=== PATIENT | female | born 1965 | race Caucasian/White ===

== ENCOUNTER 2022-06-09 17:26 | Emergency (ER) | payer OTHER, SELFPAY ==
[2022-06-09 17:30] VITALS: BP 129/87; PULSE 65; RESP 16; TEMP 36.1; O2SAT 100; BMI 25.8
--- NOTE | 2022-06-09 17:36 | ED_ITS ---
HPI - Extremity Injury (Upper) General Time Seen by Provider: 17:37 Date Seen: 06/09/22 Chief Complaint: Extremity Pain/Injury, Upper Stated Complaint: Broken Finger Time Seen by Provider: 06/09/22 17:29 Source: patient and RN notes reviewed Mode of arrival: ambulatory Limitations: no limitations Related Data Previous Rx's Medication Instructions Recorded cephalexin 500 mg tablet 500 mg PO TID #15 tabs 06/09/22 Allergies Allergy/AdvReac Type Severity Reaction Status Date / Time No Known Drug Allergies Allergy Verified 06/09/22 17:35 PFSH PFSH Social History Smoking Status: Never smoker Do you use any of these nicotine containing products: None Second hand tobacco smoke exposure: No How often do you have a drink containing alcohol: never How often do you have six or more drinks on one occasion: Never AUDIT-C Alcohol total score: 0 Non-prescribed substance use: denies use service: No Exam Const: Vital Signs, click to edit/add: Vital Signs - 24 hr 06/09/22 17:30 06/09/22 18:33 Temperature 96.9 F L Pulse Rate [Left P ulse Oximeter] 65 63 Respiratory Rate 16 18 Blood Pressure [Le ft Upper Arm] 129/87 117/104 H Pulse Oximetry 100 100 Oxygen Delivery Me thod Room Air Room Air Documenting provider has reviewed patient's vital signs: yes Common normals: no apparent distress, average body habitus, oriented x3, no limitations, healthy appearing and alert General appearance: cooperative, well kempt, well developed and anxious Other: Patient came in quite anxious. Can smell alcohol but she is still alert, conversive appropriate. GCS is 15/15. She has obvious right 4th finger deformity with the distal fingers overlapping the 3rd finger. Appears to be a opening in the skin or bleeding from the skin may be from the medial proximal 4th finger in the interdigital web space area. Has some dried blood on her forehead which likely came from her hand, no open wounds noted. Patient was ambulatory into the ED on her own accord, hanging onto her left hand with a towel. Was quite verbal initially when she was coming in. HENMT: Common normals: normocephalic, head/scalp atraumatic (Has a little bit of tenderness over the angle of the left zygomatic arch ), hearing grossly normal bilaterally, external ears normal, TM's normal bilaterally, external nose normal, nasal mucous membranes and turbinates normal, moist oral mucous me mbranes, oropharynx normal, dentition normal and gingiva normal Head and scalp: normocephalic and atraumatic (Has a little bit of tenderness over the angle of the left zygomatic arch ) Nose: external nose normal and nasal mucous membranes and turbinates normal External ear: external ears normal Tympanic membrane: TM's normal bilaterally Other: The left zygomatic arch maybe has just a mild amount of swelling but no ecchymosis, no abrasion noted at this point. Eye: Common normals: PERRL, EOMs intact bilaterally, conjunctivae normal and no scleral icterus Conjunctiva: conjunctiva(e) normal Pupil: PERRL Neck & C-Spine: Common normals: full ROM (No tenderness), no lymphadenopathy, supple, no meningeal signs, no JVD and thyroid normal Thyroid: thyroid normal Resp: Common normals: normal respiratory effort, no retractions, no use of accessory muscles and clear to auscultation bilaterally Auscultation: clear to auscultation bilaterally Cardio: Common normals: no JVD, regular rate, regular rhythm, S1 normal heart sound, S2 normal heart sound, no gallops, no clicks and no murmurs Rate: regular rate Rhythm: regular rhythm Heart sounds: S1 normal and S2 normal GI: Common normals: Normal to inspection, nondistended, normoactive bowel sounds present, soft to palpation, non-tender, no hepatosplenomegaly and no masses Palpation: soft and no hepatosplenomegaly Extremity: Other: Left hand with finger is noted above. Otherwise she complains of no other pain in her joints or extremities in the remainder of her left arm, her right arm and both of her legs are completely normal. Neuro: [place] Coma Scale: document GCS findings Yvon coma scale eye opening: Spontaneous (4) [place] coma scale verbal response: Orientated (5) [place] coma scale motor response: Obey commands (6) Yvon coma scale total score: 15 Common normals: oriented x3 Sensorium/orientation: alert Meningeal signs: no meningeal signs Psych: Appearance: well kempt Course Course Hospital Course: Did provide a digital block after examining her. I mirella up 0.25% bupivacaine, 6 mL was injected in a digital block at the base of this left 4th finger. We will be subsequently getting x-rays. Consultations Consultation #1: Have spoken with Uriel on-call for Orthopedics. I will attempt to reduce the angulation of this finger and place a splint on. Uriel understands that there is underlying laceration which I have not been able to completely evaluate yet. Staff is currently working on cleaning her hand up. Time: 18:25 Vital Signs Vital signs: Initial Vital Signs Temperature 96.9 F L 06/09/22 17:30 Temperature Source Temporal Artery Scan 06/09/22 17:30 Pulse Rate 65 06/09/22 17:30 Pulse Rhythm 06/09/22 17:30 Pulse Strength 3+ Normal 06/09/22 17:30 Respiratory Rate 16 06/09/22 17:30 Blood Pressure 129/87 06/09/22 17:30 Blood Pressure Mean 101 06/09/22 17:30 Blood Pressure Position Sitting 06/09/22 17:30 Pulse Oximetry 100 06/09/22 17:30 Oxygen Delivery Method 06/09/22 17:30 Vital Signs Temperature 96.9 F L 06/09/22 17:30 Pulse Rate 65 06/09/22 17:30 Respiratory Rate 16 06/09/22 17:30 Blood Pressure 129/87 06/09/22 17:30 Pulse Oximetry 100 06/09/22 17:30 Oxygen Delivery Method 06/09/22 17:30 Temperature 96.9 F L 06/09/22 17:30 Pulse Rate 63 06/09/22 18:33 Respiratory Rate 18 06/09/22 18:33 Blood Pressure 117/104 H 06/09/22 18:33 Pulse Oximetry 100 06/09/22 18:33 Oxygen Delivery Method 06/09/22 18:33 MDM - Extremity Injury (Upper) Imaging Data Left hand x-ray: Attestation: I have reviewed the pertinent imaging results. My impression: I see a proximal phalanx fracture of her left 4th finger. Await Radiology over- read. Radiologist's impression: Patient: CARLITA CRUM Facility:?[facility] Patient ID:?[id number] Site Patient ID:?[id number]. Site :?[id number] Study:?XRay Extremity Left HAND 3 VIEW-06/09/2022 6:09:54 PM Ordering Physician:?Antoniaon Blanca Final Report: INDICATION: Hand injury. TECHNIQUE: Three views of the left hand. FINDINGS: Acute fracture through the proximal metaphysis of the 4th proximal phalanx. Fracture appears extra-articular. Adjacent soft tissue swelling. Dictated by Gordy Batista MD @ 06/09/2022 6:30:31 PM (Electronic Signature) Critical Care Time Critical Care Time Critical Care Time: No Discharge Plan Discharge Clinical Impression: Laceration of multiple sites of hand and fingers, Finger fracture, left Patient Disposition: Home, Self-Care Condition: Stable Instructions: Laceration (ED), Finger Fracture (ED) Additional Instructions: Call the Orthopedic Clinic tomorrow morning, phone number is [phone]. They will get you scheduled for re-evaluation, will need to take down the splint to visualize the laceration areas to ensure that they are appropriately healing. Elevate this hand, apply ice to help minimize pain and swelling. Can use Tylenol and ibuprofen per bottle directions as needed for discomfort. Need to leave the splint on your hand and keep it clean and dry. Take oral antibiotic as prescribed, next dose due tomorrow morning. Prescriptions: New cephalexin 500 mg tablet 500 mg PO TID Qty: 15 0RF Stand Alone Forms: MyHealth Info Instructions Procedures Laceration Laceration 1: Pre procedure diagnosis: 1.5 cm laceration along base of left 4th finger Post procedure diagnosis: Same Site marking: not applicable Name of person performing procedure: Blanca Augustin Site: hand Side (If applicable): left Size (cm): 1.5 (Laceration was difficult to access due to patient. This was the finger that was fractured in any movement was painful for her. Difficult to see how deep this extended.) Description: irregular Depth: simple, single layer Local Anesthetic: bupivacaine 0.25% Amount of anesthesia used (mL): 2 Pre-repair: wound explored and irrigated extensively Skin layer closed with: other (Ethilon) Size (cm): 3-0 Number of sutures: 4 Technique: simple, interrupted Wound cleansing: soap Estimated blood loss (if any): less than 5mls Laceration 2: Pre procedure diagnosis: Left 5th finger laceration Post procedure diagnosis: Same Site marking: not applicable Name of person performing procedure: Blanca Augustin Site: hand Side (If applicable): left Size (cm): 0.75 (When I was evaluating the laceration along her 4th finger, saw a small irregular flap long the medial 5th finger, overlying middle phalanx.) Description: irregular Depth: simple, single layer Local Anesthetic: bupivacaine 0.25% Amount of anesthesia used (mL): 1 Pre-repair: wound explored and irrigated extensively Skin layer closed with: other (Ethilon) Size (cm): 3-0 Number of sutures: 2 Technique: simple, interrupted Wound cleansing: soap Estimated blood loss (if any): none Conclusion: patient tolerated procedure Orthopedic Fracture Reduction Fracture #1: Written consent by: patient Time Out Performed: Yes Side: left Fracture location: finger (Left 4th) Analgesia: nerve block Technique: direct manipulation Post Reduction X-rays Demonstrate: acceptable reduction Post-reduction neuro exam: intact Post-reduction vascular exam: intact Splint Applied: Yes (Ulnar gutter splint applied) Patient Tolerated Procedure: well
--- NOTE | 2022-06-09 17:50 | CRLHL7_ITS ---
For Patients: As a result of the Century Cures Act, medical imaging exams and procedure reports are released immediately into your electronic medical record. You may view this report before your referring provider. If you have questions, please contact your health care provider. INDICATION: Hand injury. TECHNIQUE: Three views of the left hand. FINDINGS: Acute fracture through the proximal metaphysis of the 4th proximal phalanx. Fracture appears extra-articular. Adjacent soft tissue swelling. Dictated by Gordy Batista MD @ 06/09/2022 6:30:31 PM (Electronically Signed)
[2022-06-09 18:33] VITALS: BP 117/104; PULSE 63; RESP 18; O2SAT 100
[2022-06-09] MEDS: TETANUS/DIPHTH/PERTUSSIS 0.5 ML SYRINGE IM (19:27)
[2022-06-09] MEDS: cephALEXin 500 MG CAPSULE PO (19:29)
== END 2022-06-09 19:34 | disposition home or self-care (01) ==
PROVIDERS: Emergency Provider Family Medicine
DX: S62.615A Displaced fracture of proximal phalanx of left ring finger, initial encounter for closed fracture (principal); S61.215A Laceration without foreign body of left ring finger without damage to nail, initial encounter; S61.217A Laceration without foreign body of left little finger without damage to nail, initial encounter; W00.9XXA Unspecified fall due to ice and snow, initial encounter; Z23 Encounter for immunization
CPT/HCPCS: 12002; 26725; 29130; 73130; 90471; 90715; 99284; A9270

== ENCOUNTER 2023-07-14 09:21 | Emergency (ER) | payer OTHER, SELFPAY ==
[2023-07-14 09:31] VITALS: BP 115/72; PULSE 62; RESP 14; TEMP 36.4; O2SAT 99; BMI 26.6
--- NOTE | 2023-07-14 09:43 | ED.GENADULT ---
HPI - General Adult General Time Seen by Provider: 09:43 Date Seen: 07/14/23 Chief complaint: Diarrhea Stated complaint: blood in stool Time Seen by Provider: 07/14/23 09:43 Source: patient, RN notes reviewed and old records reviewed (+phone call received from urgent care with sign-out.) Mode of arrival: ambulatory Limitations: no limitations History of Present Illness HPI narrative: This 58-year-old female is referred to us from urgent care with bloody mucousy stools. Patient had nausea vomiting and diarrhea for about 2 hours last night. She did go to sleep, awoke in the middle the night in had a couple mucousy stools with blood in them. This was bright red blood. She did have sense of chills during this. No documented fever. She put a pad on and did go back to bed. This morning when she awoke again she had significant pressure, lost bloody mucousy stool on the floor. She had a sense of some mild lower abdominal cramping. She presented to Urgent Care, was triaged to the ER. She ate some green beings that were 4 days past their expiration date, states they looked fine however. She had a [id number] that did not feel well yesterday, did not have the same symptoms she is having. She had colonoscopy at age 49, this was normal, was given a 10 year interval. She has not traveled except for work earlier in May, this was within the [place]. She has been able to drink water, does not really have much of an appetite this morning and has not eaten. Related Data Home Medications Medication Instructions Recorded Confirmed diltiazem HCl 240 mg 240 mg PO DAILY 06/20/22 07/14/23 capsule,extended release 24 hr hydrochlorothiazide 12.5 mg capsule 12.5 mg PO BID 06/20/22 07/14/23 lisinopril 10 mg tablet 10 mg PO DAILY 06/20/22 07/14/23 ibuprofen 200 mg tablet 200 mg PO Q6H PRN 07/17/22 07/14/23 atorvastatin 20 mg tablet 20 mg PO DAILY 07/14/23 07/14/23 Allergies Allergy/AdvReac Type Severity Reaction Status Date / Time No Known Drug Allergies Allergy Verified 07/14/23 10:34 Review of Systems Status of ROS: Reports: 6 or more systems reviewed and unremarkable except as noted in History and below [facility] Medical History Eroded bladder suspension mesh ?T83.718A - Erosion of other implanted mesh to organ or tissue, initial encounter (ICD-10) High cholesterol ?E78.00 - Pure hypercholesterolemia, unspecified (ICD-10) Hypertension ?I10 - Essential (primary) hypertension (ICD-10) Surgical History Status post breast reduction ?Z98.890 - Other specified postprocedural states (ICD-10) Social History Smoking Status: Never smoker Do you use any of these nicotine containing products: None Second hand tobacco smoke exposure: No How often do you have a drink containing alcohol: never How often do you have six or more drinks on one occasion: Never AUDIT-C Alcohol total score: 0 Non-prescribed substance use: denies use service: No Exam Const: Vital Signs, click to edit/add: Vital Signs - 24 hr 07/14/23 09:31 Temperature 97.5 F L Pulse Rate [Pulse Oximeter] 62 Respiratory Rate 14 Blood Pressure [Ri ght Upper Arm] 115/72 Pulse Oximetry 99 Oxygen Delivery Me thod Room Air This is a very pleasant 58-year-old female that is alert, interactive, no apparent distress, sitting in the ER bed working on her computer when I come in. Pupils are equal round, conjugate gaze, sclera clear. Symmetrical facial function. Lungs are clear, good air entry, no wheezing or crackles. CV regular rate and rhythm, no murmur, normal S1-S2, no S3-S4. Abdomen is soft, nondistended, bowel sounds are slightly hyperactive but no rashing or abnormal character to the bowel sounds. She has no masses, no organomegaly felt, no rebound or guarding. Skin visualized without any rash. Documenting provider has reviewed patient's vital signs: yes Course Course ED Course: Patient and I did discuss colitis, infectious diarrhea. We did discuss that we do not typically treat right away in stable, none significantly ill patients with antibiotics for ?food poisoning?. We did discuss the E coli and hemolytic uremic syndrome. There are other etiologies like colitis. I would recommend we do some baseline lab work and order CT of her abdomen and pelvis with IV contrast. She is otherwise relatively stable, will allow her to drink water at this time. Reevaluation(s) Time of Reevaluation #1: 12:01 Reevaluation #1: Reviewed with patient her CT showing some descending colitis which is nonspecific. Her labs are reassuring no overall stable. We did review the incidental renal cyst for which an outpatient preferably MRI renal protocol is recommended. I have given her copy of her CT report. We discussed outpatient treatment, further observation at home. I do not think she needs hospitalization at this time. Vital Signs Vital signs: Initial Vital Signs Temperature 97.5 F L 07/14/23 09:31 Temperature Source Temporal Artery Scan 07/14/23 09:31 Pulse Rate 62 07/14/23 09:31 Pulse Rhythm Regular 07/14/23 09:31 Respiratory Rate 14 07/14/23 09:31 Blood Pressure 115/72 07/14/23 09:31 Blood Pressure Mean 86 07/14/23 09:31 Blood Pressure Position Sitting 07/14/23 09:31 Pulse Oximetry 99 07/14/23 09:31 Oxygen Delivery Method Room Air 07/14/23 09:31 Vital Signs Temperature 97.5 F L 07/14/23 09:31 Pulse Rate 62 07/14/23 09:31 Respiratory Rate 14 07/14/23 09:31 Blood Pressure 115/72 07/14/23 09:31 Pulse Oximetry 99 07/14/23 09:31 Oxygen Delivery Method Room Air 07/14/23 09:31 Temperature 97.5 F L 07/14/23 09:31 Pulse Rate 62 07/14/23 09:31 Respiratory Rate 14 07/14/23 09:31 Blood Pressure 115/72 07/14/23 09:31 Pulse Oximetry 99 07/14/23 09:31 Oxygen Delivery Method Room Air 07/14/23 09:31 Medical Decision Making Lab Data Lab results reviewed: Yes I reviewed the patient's lab results Labs: Lab Results 07/14/23 Range/Units 10:00 WBC 9.66 (4.50-11.00) K/uL RBC 3.91 L (4.00-5.20) m/uL Hgb 12.2 (12.0-16.0) gm/dL Hct 37.0 (33.0-51.0) % MCV 95 (80-100) fL MCH 31 (26-34) pg MCHC 33 (32-36) gm/dL RDW Coeff of Rolan 12.8 (11.5-15.5) % Plt Count 291 (140-440) K/uL Neut % (Auto) 79.4 H (42.0-72.0) % Lymph % (Auto) 14.1 L (20-44) % Oliver % (Auto) 5.9 (0.0-11.0) % Eos % (Auto) 0.3 (0.0-7.0) % Baso % (Auto) 0.2 (0.0-3.0) % Neut # (Auto) 7.70 H (1.7-7.0) K/uL Lymph # (Auto) 1.40 (0.90-2.90) K/uL Oliver # (Auto) 0.60 (0.00-0.90) K/UL Eos # (Auto) 0.03 (0.00-0.50) K/uL Baso # (Auto) 0.02 (0.00-0.30) K/uL Abs Immat Gran (auto) 0.01 (0.00-0.30) K/uL Imm/Tot Granulo (auto) 0.1 % Sodium 140 (135-149) mmol/L Potassium 3.4 L (3.6-5.1) mmol/L Chloride 108 (96-114) mmol/L Carbon Dioxide 30 (20-32) mmol/L Anion Gap 2 L (7-15) mEq/L BUN 22 (7-30) mg/dL Creatinine 0.7 (0.5-1.5) mg/dL Estimated Creat Clear 84.15 Estimated GFR 100 ml/min Glucose 107 (60-115) mg/dL Lactate 0.9 (0.5-1.9) mmol/L Calcium 9.9 (8.4-10.6) mg/dL Total Bilirubin 0.6 (0.1-1.5) mg/dL AST 25 (12-35) U/L ALT 28 (4-35) U/L Alkaline Phosphatase 73 (40-150) U/L C-Reactive Protein 1.2 H (0.5-1.0) mg/dL Total Protein 7.5 (6.0-8.3) g/dL Albumin 4.6 (3.3-5.0) g/dL Imaging Data CT scan - abdomen: Attestation: I have reviewed the pertinent imaging results. Radiologist's impression: Patient: BLAKE ZAZUETA Facility:?[facility] Patient ID:?[id number] Site Patient ID:?[id number]. Site :?[id number] Study:?CT-Abdomen/Pelvis 83CC ISOVUE 370-07/14/2023 10:36:26 AM Ordering Physician:?DR. PEARSON Final Report: INDICATION: BLOODY MUCOUS STOOLS, LOWER ABD PAIN. (Sic) COMPARISON: None available. TECHNIQUE: CT of the abdomen and pelvis with 83 cc of Isovue 370 intravenous contrast. Please note that all CT scans at this facility use dose modulation, iterative reconstruction, and/or weight-based dosing when appropriate to reduce radiation dose to as low as reasonably achievable. FINDINGS: ABDOMEN Liver: Normal hepatic attenuation. No suspicious focal hepatic lesion. No intrahepatic biliary ductal dilatation. Patent portal and hepatic veins. Gallbladder: Normal gallbladder size. Normal common duct caliber. No pericholecystic inflammatory changes. Pancreas: Normal pancreatic attenuation. No focal lesion. Normal duct caliber. No peripancreatic inflammatory changes. Spleen: Normal splenic attenuation. No suspicious focal lesion. Patent splenic artery and vein. Adrenal Glands: Symmetrical adrenal glands. No focal lesion of significance. Kidneys: Normal bilateral renal attenuation. 10 mm homogeneous circumscribed relatively low-density finding in the medial cortex of the left upper pole measuring greater than simple fluid density which is likely due to pseudo-enhancement. No suspicious focal lesion is otherwise identified. No obstructing nephrolith or dilatation of the intrarenal collecting systems. Patent renal arteries and veins. Nondilated upper urinary tracts. Gastrointestinal tract: Long segmental circumferential uniform wall thickening of the descending colon with prominence of the adjacent vasculature consistent with hyperemia. Findings are consistent with nonspecific colitis. Differential diagnostic considerations, generally speaking, include inflammatory, infectious and ischemic etiologies. No evidence of mesenteric arteriovenous occlusive vascular disease. No inflammatory changes. Normal appendix. Vascular: Abdominal aorta and its major proximal branches including the celiac, superior mesenteric, inferior mesenteric, renal, and bilateral common iliac arteries are patent. Inferior vena cava, portal and superior mesenteric veins are patent. Additional findings: No incidental adenopathy. No significant ascites, free fluid or pneumoperitoneum. PELVIS No bladder lesion is identified. Incidental 2.7 cm right ovarian cyst (2; 106) for which no further workup or ongoing imaging surveillance is recommended, according to published management guidelines for such findings. No abnormal free fluid. No incidental adenopathy. SKELETON AND BODY WALL No acute or suspicious incidental findings. LOWER THORAX Partially included lower thoracic wall, lungs, pleural spaces and mediastinum are otherwise without significant incidental findings. IMPRESSION: 1. Nonspecific colitis involving the descending colon described above. 2. Incidental left upper pole renal cortical lesion most likely representing a renal cortical cyst with an attenuation measurement greater than simple fluid density which is thought to be due to pseudo-enhancement. Generally speaking, for incidental intermediate density renal lesions such as this, further characterization with a renal mass protocol CT or MRI is recommended. MRI is suggested if the patient can undergo an MRI due to its superior characterization of small renal masses, compared to CT. Recommendation: Nonemergent renal mass protocol MRI or CT. Please note that all CT scans at this facility use dose modulation, iterative reconstruction, and/or weight-based dosing when appropriate to reduce radiation dose to as low as reasonably achievable. Dictated by Jhon Garcia MD @ 07/14/2023 10:54:34 AM (Electronic Signature) Critical Care Time Critical Care Time Critical Care Time: No Discharge Plan Discharge Clinical Impression: Colitis Patient Disposition: Home, Self-Care Condition: Stable Instructions: Nutrition Tips for Relief of Diarrhea (ED), Colitis (ED) Additional Instructions: Recommend clear liquids for the next 24-48 hours as guided by your symptoms. Can advance diet as tolerated, follow the handout. If you are not improving over the next 3-5 days, or worsening at any point with worsening bleeding, increasing abdominal pain or development of fever, do need to be re-evaluated. Activity Level: Activity as Tolerated Prescriptions: No Action ibuprofen 200 mg tablet 200 mg PO Q6H PRN hydrochlorothiazide 12.5 mg capsule 12.5 mg PO BID lisinopril 10 mg tablet 10 mg PO DAILY diltiazem HCl 240 mg capsule,extended release 24hr 240 mg PO DAILY atorvastatin 20 mg tablet 20 mg PO DAILY Follow Up/Referrals: Vandana Flores PA-C [Primary Care Provider] - Stand Alone Forms: [facility] Info Instructions
--- NOTE | 2023-07-14 09:51 | CT_ITS ---
Patient: BLAKE ZAZUETA Facility:?[facility] Patient ID:?[id number] Site Patient ID:?[id number]. Site :?[id number] Study:?CT-Abdomen/Pelvis 83CC ISOVUE 370-07/14/2023 10:36:26 AM Ordering Physician:?DR. PEARSON Final Report: INDICATION: BLOODY MUCOUS STOOLS, LOWER ABD PAIN. (Sic) COMPARISON: None available. TECHNIQUE: CT of the abdomen and pelvis with 83 cc of Isovue 370 intravenous contrast. Please note that all CT scans at this facility use dose modulation, iterative reconstruction, and/or weight-based dosing when appropriate to reduce radiation dose to as low as reasonably achievable. FINDINGS: ABDOMEN Liver: Normal hepatic attenuation. No suspicious focal hepatic lesion. No intrahepatic biliary ductal dilatation. Patent portal and hepatic veins. Gallbladder: Normal gallbladder size. Normal common duct caliber. No pericholecystic inflammatory changes. Pancreas: Normal pancreatic attenuation. No focal lesion. Normal duct caliber. No peripancreatic inflammatory changes. Spleen: Normal splenic attenuation. No suspicious focal lesion. Patent splenic artery and vein. Adrenal Glands: Symmetrical adrenal glands. No focal lesion of significance. Kidneys: Normal bilateral renal attenuation. 10 mm homogeneous circumscribed relatively low-density finding in the medial cortex of the left upper pole measuring greater than simple fluid density which is likely due to pseudo- enhancement. No suspicious focal lesion is otherwise identified. No obstructing nephrolith or dilatation of the intrarenal collecting systems. Patent renal arteries and veins. Nondilated upper urinary tracts. Gastrointestinal tract: Long segmental circumferential uniform wall thickening of the descending colon with prominence of the adjacent vasculature consistent with hyperemia. Findings are consistent with nonspecific colitis. Differential diagnostic considerations, generally speaking, include inflammatory, infectious and ischemic etiologies. No evidence of mesenteric arteriovenous occlusive vascular disease. No inflammatory changes. Normal appendix. Vascular: Abdominal aorta and its major proximal branches including the celiac, superior mesenteric, inferior mesenteric, renal, and bilateral common iliac arteries are patent. Inferior vena cava, portal and superior mesenteric veins are patent. Additional findings: No incidental adenopathy. No significant ascites, free fluid or pneumoperitoneum. PELVIS No bladder lesion is identified. Incidental 2.7 cm right ovarian cyst (2; 106) for which no further workup or ongoing imaging surveillance is recommended, according to published management guidelines for such findings. No abnormal free fluid. No incidental adenopathy. SKELETON AND BODY WALL No acute or suspicious incidental findings. LOWER THORAX Partially included lower thoracic wall, lungs, pleural spaces and mediastinum are otherwise without significant incidental findings. IMPRESSION: 1. Nonspecific colitis involving the descending colon described above. 2. Incidental left upper pole renal cortical lesion most likely representing a renal cortical cyst with an attenuation measurement greater than simple fluid density which is thought to be due to pseudo-enhancement. Generally speaking, for incidental intermediate density renal lesions such as this, further characterization with a renal mass protocol CT or MRI is recommended. MRI is suggested if the patient can undergo an MRI due to its superior characterization of small renal masses, compared to CT. Recommendation: Nonemergent renal mass protocol MRI or CT. Please note that all CT scans at this facility use dose modulation, iterative reconstruction, and/or weight-based dosing when appropriate to reduce radiation dose to as low as reasonably achievable. Dictated by Jhon Garcia MD @ 07/14/2023 10:54:34 AM Signed by:?Jhon Garcia MD @07/14/2023 10:54:34 AM (Electronic Signature)
[2023-07-14 10:05] LABS: Lactate* 0.9 mmol/L (0.5-1.9)
[2023-07-14 10:07] LABS: Basophils Absolute Auto 0.02 K/uL (0.00-0.30); Basophils Percent Auto 0.2 % (0.0-3.0); Eosinophils Absolute Auto 0.03 K/uL (0.00-0.50); Eosinophils Percent Auto 0.3 % (0.0-7.0); Hemoglobin* 12.2 gm/dL (12.0-16.0); Immature Granulocytes Abs Auto 0.01 K/uL (0.00-0.30); Immature Granulocytes Pct Auto 0.1 %; Lymphocytes Percent Auto 14.1 % (20-44); Mean Corpuscular HGB Conc 33 gm/dL (32-36); Mean Corpuscular Hemoglobin 31 pg (26-34); Mean Corpuscular Volume 95 fL (80-100); Monocytes Percent Auto 5.9 % (0.0-11.0); Neutrophils Percent Auto 79.4 % (42.0-72.0); Platelet Count* 291 K/uL (140-440); RDW Coefficient of Variation % 12.8 % (11.5-15.5); Red Blood Count 3.91 m/uL (4.00-5.20); White Blood Count* 9.66 K/uL (4.50-11.00)
[2023-07-14 10:11] LABS: Slide Review Reflex No
[2023-07-14 10:19] LABS: Albumin* 4.6 g/dL (3.3-5.0); Chloride* 108 mmol/L (96-114)
[2023-07-14 10:20] LABS: Potassium* 3.4 mmol/L (3.6-5.1); Sodium* 140 mmol/L (135-149)
[2023-07-14 10:22] LABS: Alkaline Phosphatase* 73 U/L (40-150); Anion Gap 2 mEq/L (7-15); Aspartate Amino Transferase* 25 U/L (12-35); Bilirubin Total* 0.6 mg/dL (0.1-1.5); Carbon Dioxide* 30 mmol/L (20-32); Creatinine* 0.7 mg/dL (0.5-1.5); Est. Creatinine Clearance* 84.15; Estimated Glomerular Filt Rate 100 ml/min; Total Protein* 7.5 g/dL (6.0-8.3)
[2023-07-14 10:23] LABS: Alanine Aminotransferase* 28 U/L (4-35); Blood Urea Nitrogen* 22 mg/dL (7-30); Calcium* 9.9 mg/dL (8.4-10.6); Glucose* 107 mg/dL (60-115)
[2023-07-14 10:25] LABS: C Reactive Protein* 1.2 mg/dL (0.5-1.0)
[2023-07-14 12:00] VITALS: BP 108/73; PULSE 63; RESP 14; O2SAT 99
[2023-07-14 12:28] VITALS: BP 109/85; PULSE 63; RESP 14; TEMP 36.4
== END 2023-07-14 13:31 | disposition home or self-care (01) ==
PROVIDERS: Emergency Provider Family Medicine; PCP Physician Assistant Surgical
DX: K52.9 Noninfective gastroenteritis and colitis, unspecified (principal)
CPT/HCPCS: 36415; 74177; 80053; 83605; 85025; 86140; 87045; 87046; 87427; 99284; 99285; Q9967

== ENCOUNTER 2023-08-29 06:51 | Emergency (ER) | payer OTHER, SELFPAY ==
[2023-08-29 07:08] VITALS: BP 149/80; PULSE 70; RESP 18; TEMP 36.8; O2SAT 100; BMI 26.6
--- NOTE | 2023-08-29 07:46 | ED_ITS ---
HPI - General Adult General Chief complaint: Neck Injury/Pain Stated complaint: LT neck shoulder arm pain Time Seen by Provider: 08/29/23 07:29 History of Present Illness HPI narrative: This 58-year-old female comes in with severe neck pain radiating down into her left arm. This pain began 1-2 weeks ago and there was no particular injury event. She has been to urgent care where x-rays were done with no acute findings. She was also in to orthopedic clinic yesterday. The patient comes in today because her pain is not adequately controlled and sometime she feels some lightheadedness and nausea symptoms. She arrives here with normal vital signs. She is not taking any prescription medicines currently. She just finished a Medrol Dosepak which brought some relief while she was taking it. Related Data Home Medications ?Medication ?Instructions ?Recorded ?Confirmed diltiazem HCl 240 mg 240 mg PO DAILY 06/20/22 08/28/23 capsule,extended release 24 hr hydrochlorothiazide 12.5 mg capsule 12.5 mg PO BID 06/20/22 08/28/23 lisinopril 10 mg tablet 10 mg PO DAILY 06/20/22 08/28/23 ibuprofen 200 mg tablet 200 mg PO Q6H PRN 07/17/22 08/28/23 atorvastatin 20 mg tablet 20 mg PO DAILY 07/14/23 08/28/23 acetaminophen 500 mg capsule 1,000 mg PO Q6H PRN 08/28/23 08/28/23 cyanocobalamin (vitamin B-12) mcg IM 08/28/23 08/28/23 1,000 mcg/mL injection solution Previous Rx's ?Medication ?Instructions ?Recorded methylprednisolone 4 mg tablets in 4 mg PO QDAY #21 ea 08/23/23 a dose pack (Methylpred DP) cyclobenzaprine 10 mg tablet 10 mg PO TID #15 tabs 08/29/23 gabapentin 100 mg capsule 100 mg PO TID #30 caps 08/29/23 ketorolac 10 mg tablet 10 mg PO Q8H 5 days #15 tabs 08/29/23 prednisone 20 mg tablet 20 mg PO BID #20 tabs 08/29/23 Allergies Allergy/AdvReac Type Severity Reaction Status Date / Time No Known Drug Allergies Allergy Verified 08/28/23 13:55 Review of Systems Status of ROS: Reports: 10 or more systems reviewed and unremarkable except as noted in History and below Narrative: Constitutional: No fevers, no weight gain or loss. Eyes: No discharge. No vision changes. HENT: No congestion, no sore throat, no ear pain. Cardiovascular: No chest pain, no palpitations. Respiratory: No shortness of breath, no wheezes, no cough. Gastrointestinal: No abdominal pain, no vomiting, no diarrhea. Genitourinary: No dysuria, no hematuria. Musculoskeletal: Normal range of motion. Skin: No rashes, no pruritis. Neurological: No dizziness, weakness, sensory change, speech change. Endo/Heme/Allergies: No bruising or bleeding. No polydipsia. Pysch: no suicidality, no anxiety, no insomnia. All other systems reviewed and are negative. [facility] Medical History Eroded bladder suspension mesh ?T83.718A - Erosion of other implanted mesh to organ or tissue, initial encounter (ICD-10) High cholesterol ?E78.00 - Pure hypercholesterolemia, unspecified (ICD-10) Hypertension ?I10 - Essential (primary) hypertension (ICD-10) Surgical History Status post breast reduction ?Z98.890 - Other specified postprocedural states (ICD-10) Social History Smoking Status: Never smoker Do you use any of these nicotine containing products: None Second hand tobacco smoke exposure: No How often do you have a drink containing alcohol: never How often do you have six or more drinks on one occasion: Never AUDIT-C Alcohol total score: 0 Non-prescribed substance use: denies use service: No Exam Narrative: Exam Narrative: Constitutional: Well-developed, well-nourished, no acute distress. HEENT: Normocephalic, atraumatic. Neck: Normal range of motion. No tenderness along the spine. Pain is in the left side of the neck radiating down her left arm. Heart: Regular. No murmurs. Normal rate. Intact distal pulses. Lungs: Clear to auscultation. No chest discomfort. No wheezes, rhonchi, or rales. Abdomen: Normal bowel sounds. Nontender. No rebound tenderness. Genitalia: Deferred. Back: No midline tenderness. Normal range of motion. Extremities: Normal range of motion. No injury. Skin: Intact. No rash. Warm. No erythema or pallor. Neurologic: No altered sensation. No weakness. Alert and oriented. Psychiatric: No suicidality. No anxiety or depression. No insomnia. Nursing notes and vitals signs are reviewed. Const: Vital Signs, click to edit/add: Vital Signs - 24 hr 08/29/23 07:08 Temperature 98.2 F Pulse Rate [Right Pulse Oximeter] 70 Respiratory Rate 18 Blood Pressure [Ri ght Upper Arm] 149/80 H Pulse Oximetry 100 Oxygen Delivery Me thod Room Air Course Vital Signs Vital signs: Initial Vital Signs Temperature 98.2 F 08/29/23 07:08 Temperature Source Temporal Artery Scan 08/29/23 07:08 Pulse Rate 70 08/29/23 07:08 Respiratory Rate 18 08/29/23 07:08 Blood Pressure 149/80 H 08/29/23 07:08 Blood Pressure Mean 103 08/29/23 07:08 Blood Pressure Position Sitting 08/29/23 07:08 Pulse Oximetry 100 08/29/23 07:08 Oxygen Delivery Method Room Air 08/29/23 07:08 Vital Signs Temperature 98.2 F 08/29/23 07:08 Pulse Rate 70 08/29/23 07:08 Respiratory Rate 18 08/29/23 07:08 Blood Pressure 149/80 H 08/29/23 07:08 Pulse Oximetry 100 08/29/23 07:08 Oxygen Delivery Method Room Air 08/29/23 07:08 Temperature 98.2 F 08/29/23 07:08 Pulse Rate 70 08/29/23 07:08 Respiratory Rate 18 08/29/23 07:08 Blood Pressure 149/80 H 08/29/23 07:08 Pulse Oximetry 100 08/29/23 07:08 Oxygen Delivery Method Room Air 08/29/23 07:08 Medications Administered Medications: Discontinued Medications Generic Name Dose Route Start Last Admin Trade Name Freq PRN Reason Stop Dose Admin Ketorolac Tromethamine 15 mg 08/29/23 08:00 08/29/23 07:55 Ketorolac 15 Mg/Ml Inj IM 08/29/23 08:01 15 mg ONCE ONE Administration Medical Decision Making MDM Narrative Medical decision making narrative: This patient has a cervical radiculopathy and does have for appointment scheduled for physical therapy. She is having significant pain and is not on an y prescription medications. The patient did receive an intramuscular injection of Toradol 15 mg here. I did provide prescriptions for Toradol, Flexeril, gabapentin, and prednisone. I recommended that the patient follow-up with our spine clinic and indicated that she may need an MRI to guide some more specific interventions if not improving. Discharge Plan Discharge Clinical Impression: Cervical radiculopathy Patient Disposition: Home, Self-Care Condition: Stable Additional Instructions: Take medications as prescribed. Follow up with physical therapy appointments as scheduled. Also recommended to make an appointment with a spine clinic for further evaluation and treatment. Call [phone] for appointment. Prescriptions: New cyclobenzaprine 10 mg tablet 10 mg PO TID Qty: 15 0RF ketorolac 10 mg tablet 10 mg PO Q8H 5 Days Qty: 15 0RF gabapentin 100 mg capsule 100 mg PO TID Qty: 30 2RF prednisone 20 mg tablet 20 mg PO BID Qty: 20 0RF No Action ibuprofen 200 mg tablet 200 mg PO Q6H PRN cyanocobalamin (vitamin B-12) 1,000 mcg/mL solution IM acetaminophen 500 mg capsule 1,000 mg PO Q6H PRN hydrochlorothiazide 12.5 mg capsule 12.5 mg PO BID lisinopril 10 mg tablet 10 mg PO DAILY diltiazem HCl 240 mg capsule,extended release 24hr 240 mg PO DAILY methylprednisolone [Methylpred DP] 4 mg tablets,dose pack 4 mg PO QDAY Qty: 21 0RF atorvastatin 20 mg tablet 20 mg PO DAILY Follow Up/Referrals: Vandana Flores PA-C [Primary Care Provider] - Stand Alone Forms: Contracts and Grants Info Instructions
[2023-08-29] MEDS: KETOROLAC 15 MG/ML inj IM (07:55)
== END 2023-08-29 08:18 | disposition home or self-care (01) ==
LOC: ED 08:03
PROVIDERS: Emergency Provider Emergency Medicine Emergency Medical Services; PCP Physician Assistant Surgical
DX: M54.12 Radiculopathy, cervical region (principal)
CPT/HCPCS: 96372; 99283; 99284; J1885

== ENCOUNTER 2024-01-19 09:15 | Outpatient (RCR) | payer OTHER, SELFPAY | END 2024-01-22 15:42 | disposition home or self-care (01) | PROVIDERS: PCP Physician Assistant Surgical; Visit Provider Physician Assistant | DX: M25.512 Pain in left shoulder (principal); M54.12 Radiculopathy, cervical region; M79.622 Pain in left upper arm; M54.2 Cervicalgia; M54.6 Pain in thoracic spine; Z51.89 Encounter for other specified aftercare | CPT/HCPCS: 72141; 97012; 97110; 97112; 97140; 97162; 97535 ==

== ENCOUNTER 2024-02-23 08:00 | Outpatient (RCR) | payer OTHER, SELFPAY ==
--- NOTE | 2022-07-31 19:02 | OT.OPOE ---
OT Outpatient Ortho Eval OT Outpatient Ortho Eval Start: 07/31/22 18:23 Freq: Status: Active Protocol: Document 07/31/22 18:24 LCN (Rec: 07/31/22 18:54 LCN Desktop) E-signed By Chantale Soriano, OTR/L, CLT OT OP Ortho Eval Details Type Type Eval Complexity Low Insurance Information Insurance Information Comments UMR Patient Choice Outpatient History/Precautions Current Condition/Medical Diagnosis Referring Provider Vandana White PA-C Treatment Diagnosis Fracture of L RF proximal phalanx base w angul 16-18 deg , SF 5th MC base Date of Onset 06/09/22 Medical Conditions HTN Other Conditions High cholesterol Medical/Functional History Medical History Reviewed Yes Prior Level of Function/Mobility Pt is very active, recently . Has recent college graduate son living with her and other grown sons living in [place]. Has two grandchildren she helps with 6 yrs and 18 months. 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 Pt had immediate increase of pain/ pressure/edema and ecchymosis which has continued. Started having some numbness of RF/SF noted at 07/10/22 ortho visit. This has continued since then . Her L ulnar side of hand has thick waxy appearance and deep stiffness for digits 3-5. Having a hard time initiating using her hand functionally with the sensory change. Hard to buckle seat belt, lift a glass, make bed, fold bulky clothing items, put away dishes. Has good 2 pt pinch with TH/IF. Pt has more stiffness, aching than pain, but also not using hand much. Pain Assessment Pain Present Pain Present Pain Reported Location L hand Description Tightness,Pressure,Dull, Achy, Throbbing,Pulling,Shooting, Heaviness Intensity 3 Goniometric Comments Goniometric Comments Goniometric Comments Limb appearance-- waxy, skin distended with brawny edema, dorsal hand , webspaces, digit shafts of dig 3-5. Has very stiff fingers in intrinsic minus posture for 3/4/5 digits . Pt has hyper granulation flap around the newly closed wound area at RF/SF web space. 9Recently treated with silver nitrate in ortho office. Now permitted to soak hand. AROM of IF/MF/RF/SF -- Composite flexion is 1.6 cm / 4.5 / 7.0 / 5.2 cm (finger tip to palmar crease). Opposes thumb to base of small finger WNL. MCP Flex 80/70/50/10 of 90. PIP 0-110 / 0-90 / 30-50 / 20- 55. DIP 45 / 35 / 30/ 25. Director Pharmacovigilance and pinch NT per fracture healing. Edema Assessment Description Subjective Edema Description Pain,Burning,Tightness OT Objective Data Hand Hand Dominance Right OT Problems Problems Problems Decreased Strength,Decreased Range of Motion,Decreased Fine Motor,Sensory Sensitivity, Lifting,Pinching Other Problems Opening Containers,Dressing, Fasteners Patient Potential Excellent Assessment Assessment Assessment With Mouna's edema, hand/digit stiffness, strength loss of L hand after her RF/SF fractures complicated by considerable soft tissue injury including nerve changes, she would benefit from skilled OT to address these areas for full functional return of using L hand for gripping, pinching, leash work with her dog and tolerated light hand weights/ plank/core work. Occupational Therapy Treatment Plan - OP Potential Rehabilitation Potential Excellent Set Goals Goals Set with Patient Yes Goals Goals In 12 weeks, pt will demonstrate-- 1) making 90% full fist, finisher merchant products to 50# and modified 3pt pinch of SF/RF to 8# to support managing food containers, lifting/carrying groceries and return to fitness. 2) independent home program for stretching, strengthening and edema, sensory management. Target Date 10/30/22 Progress set Treatment Plan Treatment Plan Evaluation,Edema Control,Joint Mobilization,Manual Therapy, Paraffin Bath,Splinting, Therapeutic Exercise,Self-Care /Home Management,Education Expected Frequency 1-2x Week Expected Duration 8-10 Weeks Certification Certification I Certify That: Therapy Services Provided, Therapy Plan Established, Therapy Plan Reviewed
--- NOTE | 2022-09-06 17:42 | OT.OPODN2 ---
OT Outpatient Ortho Daily Note OT Outpatient Ortho Daily Note Start: 07/31/22 18:23 Freq: Status: Active Protocol: Document 09/06/22 17:35 LCN (Rec: 09/06/22 17:41 LCN [id number]) E-signed By Chantale Soriano OTR/L, CLT Type of Note Type of Note Type of Note Daily Note,Note To MD Visit Number 8 Insurance Information Insurance Information UMR Pt Cho Insurance Information Comments UMR Patient Choice Outpatient History/Precautions Current Condition/Medical Diagnosis Referring Provider Vandana White PA-C Treatment Diagnosis Fracture of L RF proximal phalanx base w angul 16-18 deg , SF 5th MC base Date of Onset 06/09/22 Medical Conditions HTN Other Conditions High cholesterol Medical/Functional History Medical History Reviewed Yes Prior Level of Function/Mobility Pt is very active, recently . Has recent college graduate son living with her and other grown sons living in [place]. Has two grandchildren she helps with 6 yrs and 18 months. 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 Hobbies Pickle ball, walking, biking area roads, Big Bro/Sister Volunteer Fitness Hoping to get back to Core, UB strength, training her dog with leash Oriented Mental Status No Concerns Ortho Subjective Subjective Subjective Pt's RF and SF have improved tissue mobility, RF has .7 x .5 cm superficial intact blister at top of margin where the compression silicone ledge was/distal margin. Looser at PIP with the compression going. SF and RF MCP's still very tight, respond to COban wrapping, but hard to self apply. Mouna Bautista is an active youthful 57 y/o female who suffered a fall with dog walking, falling into L outstretched hand on 06/09/22 with ER care that day and ortho care casting and wound care of 1 cm x .5 cm x .1 cm wound area, placed into ulnar gutter cast 06/12/22. Pt had immediate increase of pain/ pressure/edema and ecchymosis which has continued. Started having some numbness of RF/SF noted at 07/10/22 ortho visit. This has continued since then . Her L ulnar side of hand has thick waxy appearance and deep stiffness for digits 3-5. Having a hard time initiating using her hand functionally with the sensory change. Hard to buckle seat belt, lift a glass, make bed, fold bulky clothing items, put away dishes. Has good 2 pt pinch with TH/IF. Pt has more stiffness, aching than pain, but also not using hand much. Pain Assessment Pain Present Pain Present Pain Reported Location L hand Description Tightness,Pressure,Dull, Achy, Throbbing,Pulling,Shooting, Heaviness Intensity 7 OT OP Daily Ortho Note/Assessment Therapeutic Exercise Therapeutic Exercise Minutes (minutes) 13 Therapeutic Exercise Comments Added hand mainspring former brace end, 10# x 3 sec holds x 10 reps work up to 3 sets. Added RF/SF pull backs to help mobilize the MCP's and terminal EX of PIP's. Reviewed putty hooked gripping for tips of RF/SF. Manual Therapy Manual Therapy Minutes (minutes) 28 Manual Therapy Comments OTR completes LLPS of MCP , PIP, DIP for all digits RF and SF very tender with lots of breaks and deep breathing. Cont with edema massage at digit shafts and webspaces, with increased skin mobility following. Improved to AAROM 2 .1cm RF and SF to 1.2 cm composite flexion. (AROM is coming-- MF/RF/SF is 2.3 / 3. 5 / 4.6) Goniometric Comments Goniometric Comments Goniometric Comments 09/06/22-- AAROM 2.1cm RF and SF to 1.2 cm composite flexion . (AROM is coming-- MF/RF/SF is 2.3 / 3.5 / 4.6) 08/30/22--Improved to AAROM 2.7 cm RF and 2.0 composite flexion. MCP flexion is the most stiff. 08/23/22-- Improved composite digit flexion IF/MF/RF/SF to .0 / 2.5 / 1.5 / 2.8 cm. 08/12/22-- Improved composite digit flexion IF/MF/RF/SF to .8 / 2.7 / 3.7 / 3.8 cm. 08/05/22-- Improved composite digit flexion IF/MF/RF/SF to 1.5 / 3.5 / 5.2 / 3.5 cm. From 07/31/22--Limb appearance- - waxy, skin distended with brawny edema, dorsal hand , webspaces, digit shafts of dig 3-5. Has very stiff fingers in intrinsic minus posture for 3/4/5 digits. Pt has hyper granulation flap around the newly closed wound area at RF/ SF web space. 9Recently treated with silver nitrate in ortho office. Now permitted to soak hand. AROM of IF/MF/RF/SF -- Composite flexion is 1.6 cm / 4.5 / 7.0 / 5.2 cm (finger tip to palmar crease). Opposes thumb to base of small finger WNL. MCP Flex 80/70/50/10 of 90. PIP 0-110 / 0-90 / 30-50 / 20- 55. DIP 45 / 35 / 30/ 25. Boiler Tester and pinch NT per fracture healing. Edema Assessment Description Subjective Edema Description Pain,Burning,Tightness Additional Information Comments HEP-- 09/02/22-- gripper with 10# 08/30/22-- silicone digit compression tubing for over nights, self ROMN with Coban wrapping over blue tube. 08/23/22--Yellow putty mainspring former brace end IF/ MF/TH, RF/SF/TH. poke/push, alternating 2 pt Table top towel scrunches/ closed chain, fist rolling on towel (proprioception, MCP flexion assist ROM), PIP and DIP blocking, digit ABD to Add . Edema glove, warm water soaks. OT Objective Data Hand Hand Dominance Right OT Problems Problems Problems Decreased Strength,Decreased Range of Motion,Decreased Fine Motor,Sensory Sensitivity, Lifting,Pinching Other Problems Opening Containers,Dressing, Fasteners Patient Potential Excellent Assessment Assessment Assessment Pt likes the motion of the adding resistance with gripper . Joint mobilizations are still very tender for her. With Mouna's edema, hand/digit stiffness, strength loss of L hand after her RF/SF fractures complicated by considerable soft tissue injury including nerve changes, she would benefit from skilled OT to address these areas for full functional return of using L hand for gripping, pinching, leash work with her dog and tolerated light hand weights/ plank/core work. Occupational Therapy Treatment Plan - OP Potential Rehabilitation Potential Excellent Set Goals Goals Set with Patient Yes Goals Goals In 12 weeks, pt will demonstrate-- 1) making 90% full fist, mainspring former brace end to 50# and modified 3pt pinch of SF/RF to 8# to support managing food containers, lifting/carrying groceries and return to fitness. 2) independent home program for stretching, strengthening and edema, sensory management. Target Date 10/30/22 Progress set Treatment Plan Treatment Plan Evaluation,Edema Control,Joint Mobilization,Manual Therapy, Paraffin Bath,Splinting, Therapeutic Exercise,Self-Care /Home Management,Education Expected Frequency 1-2x Week Expected Duration 8-10 Weeks OT Treatment Minutes Treatment Minutes Timed Treatment Minutes 41 Total Treatment Minutes 41 Occupational Therapy Billing Units Billing Units Manual Therapy 2 Therapeutic Exercise 1 Certification Certification I Certify That: Therapy Services Provided, Therapy Plan Established, Therapy Plan Reviewed
--- NOTE | 2022-11-01 15:54 | OT.OPODN2 ---
OT Outpatient Ortho Daily Note OT Outpatient Ortho Daily Note Start: 07/31/22 18:23 Freq: Status: Active Protocol: Document 11/01/22 15:36 LCN (Rec: 11/01/22 15:54 LCN [id number]) E-signed By Chantale Soriano, OTR/L, CLT Type of Note Type of Note Type of Note Daily Note,Note To MD Visit Number [id number] Insurance Information Insurance Information [facility] Pt Cho Insurance Information Comments [facility] Patient Choice Outpatient History/Precautions Current Condition/Medical Diagnosis Referring Provider Vandana White PA-C Treatment Diagnosis Fracture of L RF proximal phalanx base w angul 16-18 deg , SF 5th MC base Date of Onset 06/09/22 Medical Conditions HTN Other Conditions High cholesterol Medical/Functional History Medical History Reviewed Yes Prior Level of Function/Mobility Pt is very active, recently . Has recent college graduate son living with her and other grown sons living in [place]. Has two grandchildren she helps with 6 yrs and 18 months. 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 Hobbies Pickle ball, walking, biking area roads, [employer] Hoping to get back to [employer], U[employer] strength, training her dog with leash Oriented Mental Status No Concerns Ortho Subjective Subjective Subjective Pt's L hand continues with daily am stiffness, responding to using home NMES and her MCP dynamic tension splints at MC, PIP/DIP and yoke with MCP of RF at 15 degrees, various splint combinations through the day. As edema in RF improves, nodule at MCP crease is more apparent, still really point tender at RF/SF web. From 09/13/22 MD NOTE--Pt is still pretty stiff at MPC of MF (60 of 90), RF/SF (45 of 90 flexion). PIPs of RF/SF ~7 to 80 of 90. Small finger is demonstrating some rotation. Has fluctuating edema, skin colors, and warm vs cold sensations. Has RF .5 x .5 cm superficial intact blister is reducing at top of margin where the compression silicone ledge was/distal margin. Saw SHANNAN who recommends spring assisted devices for digit extension and dynamic MCP flexion splinting. Mouna Bautista is an active youthful 57 y/o female who suffered a fall with dog walking, falling into L outstretched hand on 06/09/22 with ER care that day and ortho care casting and wound care of 1 cm x .5 cm x .1 cm wound area, placed into ulnar gutter cast 06/12/22. Pt had immediate increase of pain/ pressure/edema and ecchymosis which has continued. Started having some numbness of RF/SF noted at 07/10/22 ortho visit. This has continued since then . Her L ulnar side of hand has thick waxy appearance and deep stiffness for digits 3-5. Having a hard time initiating using her hand functionally with the sensory change. Hard to buckle seat belt, lift a glass, make bed, fold bulky clothing items, put away dishes. Has good 2 pt pinch with TH/IF. Pt has more stiffness, aching than pain, but also not using hand much. 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 Encouraged to use for 5-10 min intervals 1-3 x/ day . Issued info to order. Splinting Splinting Minutes (minutes) 2 Splinting Comments 10/28/22--Yoke splint for adding MCP hyperext to 15 degrees to support increase L RF PIP glide into 45 flexion during typing. ADjust velcro for dynamic splint. (updated with thinner material 10/31/22) 09/30/22-- Adjust to one band doubled with better MCP isolation, gets moderate pressure. Adjusted custom WHFO with lumbrical t bar to open space at RF/SF. 09/27/22-- OTR demonstrates proper tension on [place] MP Static Progressive Flexion Orthotic ( 3 bands provides moderate pressure), guided for keeping MCP flexion isolated with proper pad placement, just distal to the MCP joint. -- OTR fits pt with final PIP DIP tension straps for RF/SF, to alternate with other braces through the work day. 09/18/22 OTR constructs static progressive lumbrical bar splint WHFO using orthoplast and velcro closure to isolate MCP FL of SF/RF, getting to 50 of 90 today. 09/13/22--Added [place] XS/ small finger and small finger extension splints with tension adjusted and to wear for 30 min 3x/day. Issued information to order [facility] Static Progressive Flexion Orthotic to be worn with similar timing, size medium. Manual Therapy Manual Therapy Minutes (minutes) 25 Manual Therapy Comments OTR completes joint mobilization, LLPS of MCP for all digits RF and SF very tender with lots of breaks and deep breathing. Cont with edema massage at digit shafts and webspaces, with increased skin mobility following. Scar tissue mobilization at RF/SF web space; thickness, congestion reduce. Able to apply more pressure during manual resistance at DIP. Improves to 1.8cm RF composite flexion PROM after session. Issued acupressure spring ring for circumferential self mobilization /reduce digit stiffness for each finger. Goniometric Comments Goniometric Comments Goniometric Comments 11/01/22--L SF is MCP 70, PIP 85, DIP 45 ( 2.3 cm composite flexion PROM). L RF is MCP 75, PIP 75, DIP 65 ( 1.8 cm composite flexion PROM). Has active ROM tendon lag at RF, limited to 3.8 cm AROM, espcially at DIP. L MF is MCP 83, PIP 100, DIP 50 ( 1.5 composite flexion PROM). L IF to .3 composite flexion/WNL. 10/28/22-- After tx RF/SF AAROM to 1.8 / 2.0 cm 10/23/22-- After tx RF/SF AAROM to 2.3 / 2.3 cm 10/14/22-- After tx RF/SF AAROM to 2.3 / 2.7 cm 10/04/22-- RF/SF AROM glides 2. 3 after tx ( AAROM to 2.2 1.7 cm) 09/30/22-- Post Tx Composite flexion L IF/MF/RF/SF 0 / 1. 2 / 2.3 / 2.3 cm 09/27/22-- improved MCP flexion to 85, 80 RF and SF. 09/20/22--Post Tx Composite flexion L IF/MF/RF 2.2 / 1.7 / .7 cm 09/13/22-- L IF/MF/RF/SF MCP 90 /60 /45 /45. PIPS ~7-80. -- AAROM 2.1cm RF and SF to 1.2 cm composite flexion. ( AROM is coming-- MF/RF/SF is 2.3 / 3.5 / 4.6) 08/30/22--Improved to AAROM 2.7 cm RF and 2.0 composite flexion. MCP flexion is the most stiff. 08/23/22-- Improved composite digit flexion IF/MF/RF/SF to .0 / 2.5 / 1.5 / 2.8 cm. 08/12/22-- Improved composite digit flexion IF/MF/RF/SF to .8 / 2.7 / 3.7 / 3.8 cm. 08/05/22-- Improved composite digit flexion IF/MF/RF/SF to 1.5 / 3.5 / 5.2 / 3.5 cm. From 07/31/22--Limb appearance- - waxy, skin distended with brawny edema, dorsal hand , webspaces, digit shafts of dig 3-5. Has very stiff fingers in intrinsic minus posture for 3/4/5 digits. Pt has hyper granulation flap around the newly closed wound area at RF/ SF web space. 9Recently treated with silver nitrate in ortho office. Now permitted to soak hand. AROM of IF/MF/RF/SF -- Composite flexion is 1.6 cm / 4.5 / 7.0 / 5.2 cm (finger tip to palmar crease). Opposes thumb to base of small finger WNL. MCP Flex 80/70/50/10 of 90. PIP 0-110 / 0-90 / 30-50 / 20- 55. DIP 45 / 35 / 30/ 25. 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 10/21/22-- NMES program 2 x 15 minutes 2x/day with gripping 10/14/22-- get a new MCP spring splint 10/04/22-- Hook and pulls. 09/13/22--extension spring splints for PIP and MCP flexion splint 09/02/22-- gripper with 10# 08/30/22-- silicone digit compression tubing for over nights, self ROMN with Coban wrapping over blue tube. 08/23/22--Yellow putty fur floor worker IF/ MF/TH, RF/SF/TH. poke/push, alternating 2 pt Table top towel scrunches/ closed chain, fist rolling on towel (proprioception, MCP flexion assist ROM), PIP and DIP blocking, digit ABD to Add . Edema glove, warm water soaks. OT Objective Data Hand Hand Dominance Right OT Problems Problems Problems Decreased Strength,Decreased Range of Motion,Decreased Fine Motor,Sensory Sensitivity, Lifting,Pinching Other Problems Opening Containers,Dressing, Fasteners Patient Potential Excellent Assessment Assessment Assessment Pt 's stiffness reduces through the day. Has apparent tendon lag at L RF DIP (PROM 1.8 cm, AROM 3.8 cm glide. Has tender nodule at RF MCP volar crease. With Mouna's edema, hand/digit stiffness, strength loss of L hand after her RF/SF fractures complicated by considerable soft tissue injury including nerve changes, she would benefit from skilled OT to address these areas for full functional return of using L hand for gripping, pinching, leash work with her dog and tolerated light hand weights/ plank/core work. Occupational Therapy Treatment Plan - OP Potential Rehabilitation Potential Excellent Set Goals Goals Set with Patient Yes Goals Goals In 12 weeks, pt will demonstrate-- 1) making 90% full fist, fur floor worker to 50# and modified 3pt pinch of SF/RF to 8# to support managing food containers, lifting/carrying groceries and return to fitness. 2) independent home program for stretching, strengthening and edema, sensory management. Target Date 12/31/22 Progress set Treatment Plan Treatment Plan Evaluation,Edema Control,Joint Mobilization,Manual Therapy, Paraffin Bath,Splinting, Therapeutic Exercise,Self-Care /Home Management,Education Expected Frequency 1-2x Week Expected Duration 8-10 Weeks Expected Duration Comments Adding 6 more weeks of OT, 1-2 x/week per continued stiffness. OT Treatment Minutes Treatment Minutes Timed Treatment Minutes 30 Total Treatment Minutes 30 Occupational Therapy Billing Units Billing Units Manual Therapy 2 Certification Certification I Certify That: Therapy Services Provided, Therapy Plan Established, Therapy Plan Reviewed
== END 2024-06-22 23:59 | disposition home or self-care (01) ==
PROVIDERS: PCP Physician Assistant Surgical; Visit Provider Physician Assistant Surgical
DX: S62.609A Fracture of unspecified phalanx of unspecified finger, initial encounter for closed fracture (principal); Z51.89 Encounter for other specified aftercare
CPT/HCPCS: 97035; 97110; 97140; 97162; 97165; 97530; 97535; 97763; L3806; L3933; X5282

== ENCOUNTER 2024-05-17 10:24 | Outpatient (CLI) | payer OTHER, SELFPAY ==
--- NOTE | 2024-05-17 11:22 | P.ANES_ITS ---
Anesthesia Charges Start Date/Time Anesthesia Start Date: 05/17/24 Anesthesia Start Time: 10:57 Stop Date/Time Anesthesia Stop Date: 05/17/24 Anesthesia Stop Time: 11:25 Coding CPT Codes CPT Codes: FRIEDA LWR INTST SCR COLSC - 61925 ([id number]) P2 - PATIENT W/MILD SYST DISEASE, QX - TRIM INSTALLER SVC W/ MD MED DIRECTION, QK - FUR FINISHER 2-4 CNCRNT ANES PROC
--- NOTE | 2024-05-17 11:22 | W.ANESCHARGE ---
Anesthesia Charges Start Date/Time Anesthesia Start Date: 05/17/24 Anesthesia Start Time: 10:57 Stop Date/Time Anesthesia Stop Date: 05/17/24 Anesthesia Stop Time: 11:25 Coding CPT Codes CPT Codes: FRIEDA LWR INTST SCR COLSC - 08872 ([id number]) P2 - PATIENT W/MILD SYST DISEASE, QX - PATIENT OFFICE REP SVC W/ MD MED DIRECTION, QK - DIRECTOR SANITATION BUREAU 2-4 CNCRNT ANES PROC
--- NOTE | 2024-05-17 11:25 | P.ANES_ITS ---
Anesthesia Charges Start Date/Time Anesthesia Start Date: 05/17/24 Anesthesia Start Time: 10:57 Stop Date/Time Anesthesia Stop Date: 05/17/24 Anesthesia Stop Time: 11:25 Coding CPT Codes CPT Codes: FRIEDA LWR INTST SCR COLSC - 99921 ([id number]) P2 - PATIENT W/MILD SYST DISEASE, QK - ESTHETIC DERMATOLOGIST 2-4 CNCRNT ANES PROC, QX - DOOR CLOSER MECHANIC SVC W/ MD MED DIRECTION
--- NOTE | 2024-05-17 11:25 | W.ANESCHARGE ---
Anesthesia Charges Start Date/Time Anesthesia Start Date: 05/17/24 Anesthesia Start Time: 10:57 Stop Date/Time Anesthesia Stop Date: 05/17/24 Anesthesia Stop Time: 11:25 Coding CPT Codes CPT Codes: FRIEDA LWR INTST SCR COLSC - 45790 ([id number]) P2 - PATIENT W/MILD SYST DISEASE, QK - EXPORT FREIGHT SPECIALIST 2-4 CNCRNT ANES PROC, QX - ARNP SVC W/ MD MED DIRECTION
== END 2024-05-17 10:25 | disposition home or self-care (01) ==
LOC: OP CLINIC 10:27
PROVIDERS: PCP Student in an Organized Health Care Education/Training Program; Visit Provider Internal Medicine
DX: Z12.11 Encounter for screening for malignant neoplasm of colon (principal); K57.30 Diverticulosis of large intestine without perforation or abscess without bleeding
CPT/HCPCS: 00812; 45378; J2704

== ENCOUNTER 2025-02-09 08:51 | Outpatient (CLI) | payer OTHER, SELFPAY | END 2025-02-09 08:52 | disposition home or self-care (01) | PROVIDERS: PCP Student in an Organized Health Care Education/Training Program; Visit Provider Nurse Practitioner Family | DX: I10 Essential (primary) hypertension (principal); E78.5 Hyperlipidemia, unspecified; D64.9 Anemia, unspecified | CPT/HCPCS: 80053; 80061; 82728 ==